=== PATIENT | male | born 1975 | race Caucasian/White ===

== ENCOUNTER 2019-11-17 07:04 | Inpatient (IN) | payer MEDICAID ==
[2019-11-16 17:03] LABS: CLARITY,URINE CLEAR (Clear); COLOR,URINE STRAW (Yellow); GLUCOSE, URINE NEGATIVE (Neg); KETONES,URINE NEGATIVE (Neg); LEUKOCYTE ESTERASE ,URINE NEGATIVE (Neg); NITRITES, URINE NEGATIVE (Neg); OCCULT BLOOD,URINE NEGATIVE (Neg); PROTEIN,URINE NEGATIVE (Neg); UROBILINOGEN,URINE 0.2 E.U/dL (0.2-1.0)
[2019-11-16 17:04] LABS: UA COLLECTION TYPE CLN CATCH MIDSTREAM
[2019-11-16 17:05] LABS: BASOPHILS # (AUTO) 0.1 X10'3 (0-0.2); BASOPHILS % (AUTO) 0.5 % (0-1); EOSINOPHILS # (AUTO) 0.2 X10'3 (0-0.9); EOSINOPHILS % (AUTO) 1.9 % (0-6); LYMPHOCYTES # (AUTO) 2.5 X10'3 (1.1-4.8); MEAN CORPUSCULAR HEMOGLOBIN 31.8 PG (27.0-31.0); MEAN CORPUSCULAR HGB CONC 34.8 g/dL (33.0-36.5); MEAN CORPUSCULAR VOLUME 91.4 FL (78-98); MEAN PLATELET VOLUME 8.7 FL (7.4-10.4); MONOCYTES # (AUTO) 0.7 X10'3 (0-0.9); MONOCYTES % (AUTO) 5.8 % (2-12); NEUTROPHILS # (AUTO) 8.1 X10'3 (1.8-7.7); NEUTROPHILS % (AUTO) 69.8 % (42-75); PRE OP HEMATOCRIT 48.5 % (42.0-52.0); PRE OP HEMOGLOBIN 16.8 g/dL (14.0-17.9); PRE OP PLATELET COUNT 178 X10'3 (140-440); RED CELL DISTRIBUTION WIDTH 13.3 % (11.5-14.5)
[2019-11-16 17:17] LABS: PRE OP PROTIME 10.2 SECONDS (9.0-12.0)
[2019-11-16 17:19] LABS: ALBUMIN 4.1 G/DL (3.4-5.0); ALBUMIN/GLOBULIN RATIO 1.2 (1.1-1.5); ALKALINE PHOSPHATASE 97 IU/L (46-116); BLOOD UREA NITROGEN 16 MG/DL (7-18); BUN/CREATININE RATIO 15.2 (5.4-32.0); CHLORIDE 106 MMOL/L (99-107); CREATININE 1.05 MG/DL (0.60-1.10); PRE OP ALT 62 U/L (30-65); PRE OP ANION GAP 11 (8-16); PRE OP AST 21 U/L (10-37); PRE OP BILIRUB, TOTAL 0.5 MG/DL (0.0-1.0); PRE OP GLUCOSE 84 MG/DL (70-104); PRE OP POTASSIUM 3.9 MMOL/L (3.4-5.1); PRE OP SODIUM 142 MMOL/L (135-145); TOTAL CARBON DIOXIDE 25.3 MMOL/L (24-32); TOTAL PROTEIN 7.6 G/DL (6.4-8.2); eGFR 76 ML/MIN
[~2019-11-17] VITALS: Ht 180.3 cm; Wt 117.9 kg
[2019-11-17] VITALS (19 sets, daily range): BP systolic 113–152; BP diastolic 53–85
[~2019-11-17 07:04] MED LIST: NO HOME MEDS; ceFAZolin/D5W- 1GM premix 50 ML IV ONE; famotidine 10mg tablet PO ONE; ringers solution, lacted 1,000 ML IV SCH; tranexamic acid inj. 1,000 MG in normal saline 100 ML IV ONE; vancomycin inj 1,500 MG in normal saline 300ml IV soln IV ONE
[2019-11-17] MEDS ORDERED: ketorolac trometh. 30mg/ml inj. ONE (07:49)
[2019-11-17] MEDS ORDERED: ROPIVAcaine 0.5% (5mg/ml) 30ml vial ONE ×2 (07:50→12:55)
[2019-11-17] MEDS ORDERED: tranexamic acid inj. 1,000 MG in normal saline 100 ML IV ONE (09:30)
[2019-11-17] MEDS ORDERED: sevoflurane 250ml liquid IH ONE (10:20)
[2019-11-17] MEDS ORDERED: fentaNYL/PF 50MCG/1 ML 2ML syringe ONE ×2 (10:26→11:05)
[2019-11-17] MEDS ORDERED: MIDAZolam 5mg/5ml vial ONE (10:27)
[2019-11-17] MEDS ORDERED: dexamethasone sod phosphate 4mg/ml inj. ONE (11:04)
[2019-11-17] MEDS ORDERED: propofol inj 20 ML IV ONE (11:04)
[2019-11-17] MEDS ORDERED: glycopyrrolate 0.2mg/ml inj ONE (11:04)
[2019-11-17] MEDS ORDERED: rocuronium 10mg/ml inj IV ONE (11:04)
[2019-11-17] MEDS ORDERED: neostigmine methylsulfate 1 MG/ML 10ml vial ONE (11:04)
[2019-11-17] MEDS ORDERED: LIDOcaine 2% (20mg/ml) 5ml vial ONE (11:04)
[2019-11-17] MEDS ORDERED: ondansetron/PF 4mg/2ml inj ONE (11:04)
[2019-11-17] MEDS ORDERED: ringers solution, lacted 1,000 ML IV SCH (11:29)
[2019-11-17] MEDS ORDERED: meperidine/PF 25mg/ml syringe IV PRN ×3 (11:30)
[2019-11-17] MEDS ORDERED: ROPIVAcaine 0.2% (10 MG/5 ML) BOLUS INJECTION INTERSCALE PRN (11:30)
[2019-11-17] MEDS ORDERED: proCHLORperazine 10 MG/2 ml inj IV PRN (11:30)
[2019-11-17] MEDS ORDERED: morphine 4 MG/ML inj SYRINge IV PRN ×2 (11:30)
[2019-11-17] MEDS ORDERED: ondansetron/PF 4mg/2ml inj IV PRN ×2 (11:30→13:15)
[2019-11-17] MEDS ORDERED: ceFAZolin 1000mg inj ONE (12:55)
[2019-11-17] MEDS ORDERED: HYDROmorphone 1 mg/ml syringe IV PRN (13:15)
[2019-11-17] MEDS ORDERED: diphenhydrAMINE 25mg capsule PO PRN ×2 (13:15)
[2019-11-17] MEDS ORDERED: acetaminophen 325mg tablet PO PRN (13:15)
[2019-11-17] MEDS ORDERED: HYDROmorphone inj. 0.5 MG/0.5 ML DISP.SYRIN IV PRN (13:15)
[2019-11-17] MEDS ORDERED: bisacodyl 10mg suppository rectal RC PRN (13:15)
[2019-11-17] MEDS ORDERED: magnesium hydroxide 30ml (MOM) UD suspension PO PRN (13:15)
[2019-11-17] MEDS ORDERED: oxyCODONE IR 5mg (immed. release) tablet PO PRN (13:15)
--- NOTE | 2019-11-17 13:20 | NUR ---
ADMITTED TO PACU FROM OR ACCOMPANIED BY ANESTHESIA. INTIAL PHYSICAL ASSESSMENT DONE AND RECORDED. REPORT RECEIVED FROM ANESTHESIA.
[2019-11-17] MEDS: ROPIVAcaine 0.2%/PF PUMP/bolus 550 ML INTERSCALE SCH ×2 (13:40→23:09)
--- NOTE | 2019-11-17 14:40 | NUR ---
PACU DISCHARGE CRITERIA MET, REPORT GIVEN TO FLOOR. PAIN CONTROL DIFFICULT, FLOOR RN ADVISED WILL HAVE COMMISSARY MANAGER EVALUATE. TRANSFERRED TO ROOM IN STABLE GOOD CONDITION.
[2019-11-17] MEDS: acetaminophen 325mg tablet PO SCH ×2 (14:49→20:07)
[2019-11-17] MEDS: oxyCODONE IR 5mg (immed. release) tablet PO PRN (14:49)
--- NOTE | 2019-11-17 15:52 | NUR ---
Patient vss, has significant improvement. Given ordered Oxy IR on admit to floor as well as Tylenol for pain reported 10/10. Now reporting his pain level 5/10 and much more comfortable. Neurovascular intact. Right eye with droop but had interscalene block, still with some numbness in the right arm
[2019-11-17] MEDS ORDERED: tranexamic acid inj. 1,170 MG in normal saline 100ml IV soln 100 ML IV ONE (16:15)
[2019-11-17] MEDS: ceFAZolin 1GM/D5W- ADD-VANTAGE 50 ML IV SCH (17:37)
[2019-11-17] MEDS: potassium cl 20mEq in 1/2 NS 1,000 ML IV SCH ×2 (17:37→21:15)
--- NOTE | 2019-11-17 18:21 | NUR ---
Patient in room [facility] 4013. I have received report from RAMÍREZ CASTRO and had the opportunity to ask questions and assume patient care.
[2019-11-17] MEDS ORDERED: VANCOMYCIN 1gm/H2O 200ml PB 200 ML IV SCH (20:00)
[2019-11-17] MEDS ORDERED: sennosides 8.6mg tablet PO SCH (21:00)
[2019-11-18] MEDS: ceFAZolin 1GM/D5W- ADD-VANTAGE 50 ML IV SCH (01:07)
[2019-11-18] MEDS: acetaminophen 325mg tablet PO SCH ×2 (01:10→08:50)
--- NOTE | 2019-11-18 06:21 | NUR ---
Problems reprioritized. Patient report given, questions answered & plan of care reviewed with RAMÍREZ CASTRO.
[2019-11-18 07:26] LABS: BASOPHILS % (AUTO) 0.1 % (0-1); EOSINOPHILS % (AUTO) 0.1 % (0-6); HEMATOCRIT 44.7 % (42.0-52.0); HEMOGLOBIN 15.4 g/dl (14.0-17.9); LYMPHOCYTES # (AUTO) 1.8 X10'3 (1.1-4.8); LYMPHOCYTES % (AUTO) 10.7 % (21-51); MEAN CORPUSCULAR HEMOGLOBIN 31.7 PG (27.0-31.0); MEAN CORPUSCULAR HGB CONC 34.5 g/dL (33.0-36.5); MEAN CORPUSCULAR VOLUME 91.8 FL (78-98); MEAN PLATELET VOLUME 8.5 FL (7.4-10.4); MONOCYTES # (AUTO) 0.9 X10'3 (0-0.9); MONOCYTES % (AUTO) 5.4 % (2-12); NEUTROPHILS # (AUTO) 14.1 X10'3 (1.8-7.7); NEUTROPHILS % (AUTO) 83.7 % (42-75); PLATELET COUNT 174 X10'3 (140-440); RED BLOOD COUNT 4.87 X10'6 (4.70-6.10); RED CELL DISTRIBUTION WIDTH 13.3 % (11.5-14.5); WHITE BLOOD COUNT 16.8 X10'3 (4.5-11.0)
[2019-11-18 07:33] LABS: ANION GAP 11 (8-16); CHLORIDE 107 MMOL/L (99-107); POTASSIUM 4.3 MMOL/L (3.5-5.1); SODIUM 143 MMOL/L (135-145); TOTAL CARBON DIOXIDE 25.4 MMOL/L (24-32)
[2019-11-18] MEDS ORDERED: ASPI-1 PO (08:01)
[2019-11-18] MEDS ORDERED: aspirin 325mg tablet PO SCH (08:30)
[2019-11-18] MEDS: oxyCODONE IR 5mg (immed. release) tablet PO PRN (08:50)
--- NOTE | 2019-11-18 09:55 | NUR ---
Patient discharged via w/c home with driving. Given instructions for use of On-Q ball. Right shoulder dressing cdi. Given his 2 powder packs and 2 island dressings for home. All dc instructions and script for pain med given. Has appt already made. Aspirin prescription called to Christie Bowser. States he understands his shoulder precautions.
[2019-11-19] MEDS ORDERED: acetaminophen 325mg tablet PO PRN (13:15)
== END 2019-11-18 09:00 | disposition home or self-care (01) | DRG 322 ==
LOC: PAS 07:04 → EDSEX 10:00 → EDSTATUS 10:00 → EDBD 10:00 → ORTHO 4S 16:43 → OBSVTOIN 11-18 07:57
PROVIDERS: ADMIT Orthopaedic Surgery; ATTEND Orthopaedic Surgery
PROC: 0LS30ZZ Reposition Right Upper Arm Tendon, Open Approach (ICD-10-PCS; 2019-11-17)
PROC: 3E0T3BZ Introduction of Anesthetic Agent into Peripheral Nerves and Plexi, Percutaneous Approach (ICD-10-PCS; 2019-11-17)
PROC: 0RRJ0JZ Replacement of Right Shoulder Joint with Synthetic Substitute, Open Approach (ICD-10-PCS; principal; 2019-11-17 10:20)
DX: M19.011 Primary osteoarthritis, right shoulder (principal); E66.01 Morbid (severe) obesity due to excess calories; M75.121 Complete rotator cuff tear or rupture of right shoulder, not specified as traumatic; G89.29 Other chronic pain; M65.811 Other synovitis and tenosynovitis, right shoulder; Z68.36 Body mass index [BMI] 36.0-36.9, adult
CPT/HCPCS: 36415; 80051; 80053; 81003; 82948; 85025; 85610; 85730; 86885; 86900; 86901; 97161; 97530; A4565; A4618; A7000; C1713; C1776; G0378; J0690; J1100; J1170; J1885; J2001; J2250; J2405; J2704; J2710; J2795; J3010; J3370; J3480; J3490; J7120